=== PATIENT | female | born 1950 | race Caucasian/White ===

== ENCOUNTER 2021-06-10 08:59 | Emergency (ER) | payer MEDICARE ==
[~2021-06-10] VITALS: Ht 162.6 cm; Wt 63.0 kg
[2021-06-10 09:30] LABS: BASO % 0 % (0-3); EOS % 0 % (0-3); HEMOGLOBIN 12.6 g/dL (12.0-15.5); LYMPH # 1.2 x10^3/uL (1.0-4.8); LYMPH % 10 % (24-48); MEAN CORPUSCULAR HEMOGLOBIN 32 pg (25-35); MEAN CORPUSCULAR HGB CONC 34 g/dL (31-37); MEAN CORPUSCULAR VOLUME 93 fL (79-100); MONO # 0.8 x10^3/uL (0.0-1.1); MONO % 6 % (0-9); NEUT # 10.8 x10^3/uL (1.8-7.7); NEUT % 84 % (31-73); PLATELET COUNT 198 x10^3/uL (140-400); RED BLOOD COUNT 3.97 x10^6/uL (3.50-5.40); RED CELL DISTRIBUTION WIDTH 13.3 % (11.5-14.5); WHITE BLOOD COUNT 12.8 x10^3/uL (4.0-11.0)
[2021-06-10] MEDS ORDERED: MORPHINE SULFATE 2 MG/ML INJ. IV ONE (09:30)
--- NOTE | 2021-06-10 09:30 | PHYS DOC ---
Past Medical History Past Medical History: High Cholesterol Past Surgical History: Knee Replacement Smoking Status: Never Smoker Alcohol Use: None Drug Use: None General Adult EDM: Chief Complaint: CHEST PAIN HPI: HPI: 70-year-old female with recent history of knee replacement 1 month ago in the left leg presents the emergency department complaining of chest pain with difficulty breathing for the past several hours. She reports that her chest pain feels like she cannot get her breath out and worsens upon deep breathing. She has never had pain like this in the past. She has not noticed any leg swelling in the left leg, but has noticed some tingling in the left leg over the past 1 month that she attributed to nerve damage from her knee replacement. She has been wearing compression stockings. She has no history of blood clots in the past. She does not take any blood thinners. The patient denies nausea, vomiting, fever, chills, abdominal pain, urinary symptoms, cough, recent trauma, or any other complaints. Review of Systems: Review of Systems: ROS is otherwise reviewed as negative except for what was mentioned in HPI. Heart Score: C/O Chest Pain: Yes HEART Score for Chest Pain: HEART Score for Chest Pain Response (Comments) Value History Slighlty/Non-Suspicious 0 ECG Normal 0 Age > 65 2 Risk Factors 1 or 2 Risk Factors 1 Total 3 Current Medications: Current Medications Medications (Trade) Dose Ordered Sig/Buzz Start Time Stop Time Status Last Admin Dose Admin Morphine Sulfate (Morphine Sulfate) 4 mg 1X ONCE 06/10/21 09:30 06/10/21 09:31 UNV Allergies: Allergies: Allergies Coded Allergies Type Severity Reaction Last Updated Verified No Known Drug Allergies 06/10/21 No Physical Exam: PE: Constitutional: No acute distress, non-toxic appearance. HENT: Atraumatic, bilateral external ears normal, nose normal. Eyes: Conjunctiva normal, no discharge. Neck: Normal range of motion, supple, no stridor. Cardiovascular: Heart rate regular rhythm. 2+ radial pulses and equal Lungs & Thorax: No respiratory distress, symmetrical expansion. Bilateral breath sounds clear to auscultation Chest wall: No reproducible chest wall tenderness to palpation, no lesions. Abdomen: Soft, no tenderness Skin: Warm, dry. Extremities: Compression stockings in place, well-healed scar over the left knee from knee replacement surgery, no asymmetrical swelling Neurologic: Alert and oriented X 3, normal motor function, normal sensory functi on, no focal deficits noted. GCS 15. Psychologic: Affect normal, judgment normal, mood normal. Current Patient Data: Labs: Laboratory Tests Test 06/10/21 09:16 06/10/21 12:20 06/10/21 12:59 White Blood Count 12.8 x10^3/uL (4.0-11.0) Red Blood Count 3.97 x10^6/uL (3.50-5.40) Hemoglobin 12.6 g/dL (12.0-15.5) Hematocrit 37.0 % (36.0-47.0) Mean Corpuscular Volume 93 fL (79-100) Mean Corpuscular Hemoglobin 32 pg (25-35) Mean Corpuscular Hemoglobin Concent 34 g/dL (31-37) Red Cell Distribution Width 13.3 % (11.5-14.5) Platelet Count 198 x10^3/uL (140-400) Neutrophils (%) (Auto) 84 % (31-73) Lymphocytes (%) (Auto) 10 % (24-48) Monocytes (%) (Auto) 6 % (0-9) Eosinophils (%) (Auto) 0 % (0-3) Basophils (%) (Auto) 0 % (0-3) Neutrophils # (Auto) 10.8 x10^3/uL (1.8-7.7) Lymphocytes # (Auto) 1.2 x10^3/uL (1.0-4.8) Monocytes # (Auto) 0.8 x10^3/uL (0.0-1.1) Eosinophils # (Auto) 0.0 x10^3/uL (0.0-0.7) Basophils # (Auto) 0.0 x10^3/uL (0.0-0.2) Prothrombin Time 13.0 SEC (11.7-14.0) Prothromb Time International Ratio 1.0 (0.8-1.1) Activated Partial Thromboplast Time 26 SEC (24-38) Sodium Level 139 mmol/L (136-145) Potassium Level 4.1 mmol/L (3.5-5.1) Chloride Level 100 mmol/L (98-107) Carbon Dioxide Level 29 mmol/L (21-32) Anion Gap 10 (6-14) Blood Urea Nitrogen 11 mg/dL (7-20) Creatinine 0.8 mg/dL (0.6-1.0) Estimated GFR (Cockcroft-Gault) 70.5 Glucose Level 184 mg/dL (70-99) Calcium Level 9.7 mg/dL (8.5-10.1) Troponin I Quantitative < 0.017 ng/mL (0.000-0.055) < 0.017 ng/mL (0.000-0.055) AB-Aub-F-Type Natriuretic Peptide 296 pg/mL (0-124) Urine Collection Type Unknown Urine Color Yellow Urine Clarity Clear Urine pH 7.5 (<5.0-8.0) Urine Specific [place] >=1.030 (1.000-1.030) Urine Protein Negative mg/dL (NEG-TRACE) Urine Glucose (UA) Negative mg/dL (NEG) Urine Ketones (Stick) Negative mg/dL (NEG) Urine Blood Negative (NEG) Urine Nitrite Negative (NEG) Urine Bilirubin Negative (NEG) Urine Urobilinogen Dipstick 1.0 mg/dL (0.2 mg/dL) Urine Leukocyte Esterase Negative (NEG) Urine RBC 3-5 /HPF (0-2) Urine WBC 0 /HPF (0-4) Urine Squamous Epithelial Cells Few /LPF Urine Amorphous Sediment Present /HPF Urine Bacteria 0 /HPF (0-FEW) Vital Signs: Vital Signs Date Time Temp Pulse Resp B/P (MAP) Pulse Ox O2 Delivery O2 Flow Rate FiO2 06/10/21 09:00 98.7 106 16 142/72 (95) 99 Room Air 98.7 EKG: EKG: Time read: 0907 Sinus tachycardia rate of 106, no ST-T wave changes, no ectopic beats, normal axis, normal CT, QRS, and QTc intervals. Impression: Normal EKG. interpreted by me, Dante Bain D.O. Radiology/Procedures: Radiology/Procedures: Wells' Criteria for Pulmonary Embolism from [email or web address] on 06/10/2021 RESULT SUMMARY: 6.0 points Moderate risk group: 16.2% chance of PE in an ED population. Another study assigned scores > 4 as PE Likely and had a 28% incidence of PE. INPUTS: Clinical signs and symptoms of DVT > 0 = No PE is #1 diagnosis OR equally likely > 3 = Yes Heart rate > 100 > 1.5 = Yes Immobilization at least 3 days OR surgery in the previous 4 weeks > 1.5 = Yes Previous, objectively diagnosed PE or DVT > 0 = No Hemoptysis > 0 = No Malignancy w/ treatment within 6 months or palliative > 0 = No Course & Med Decision Making: Course & Med Decision Making Second set troponin is negative, radiology suggestive of early pneumonia, patient states that she has had pneumonia in the past, states it feels similar today. She felt much better after interventions. She complained of some lower abdominal pain that she believes is likely constipation as she is on pain medicine at home for chronic amount of time and is currently weaning off of it. She appears well and improved upon discharge examination. My Orders - DANTE BAIN DO Procedure Category Date Status Time Vital Signs Monitoring ER 06/10/21 Transmitted 09:16 Blood Pressure ER 06/10/21 Transmitted Monitoring 09:16 Cardiac Monitoring ER 06/10/21 Transmitted 09:16 Basic Metabolic Panel LAB 06/10/21 Complete 09:16 Cbc W Autodiff LAB 06/10/21 Complete 09:16 Protime With Inr LAB 06/10/21 Complete 09:16 Ua, Cult If Indicated LAB 06/10/21 Complete 09:16 Portable Chest 1v RAD 06/10/21 Resulted 09:16 Morphine Sulfate PHA 06/10/21 Complete (Morphine Sulfate) 09:[address] 06/10/21 Resulted 09:16 Nt-Pro Bnp LAB 06/10/21 Complete 09:16 Troponini LAB 06/10/21 Complete 09:16 Troponini LAB 06/10/21 Complete 12:16 Troponini LAB 06/10/21 Logged 15:16 Partial LAB 06/10/21 Complete Thromboplastin Time 09:16 Iohexol 350 Mg/Ml PHA 06/10/21 Complete (Omnipaque 350 Mg/Ml) 10:15 Ceftriaxone Iv Push PHA 06/10/21 Complete (Rocephin) 11:45 Departure Departure Impression: Primary Impression: Walking pneumonia Disposition: HOME / SELF CARE / HOMELESS Condition: STABLE Patient Instructions: Pneumonia, Adult, [id number] Additional Instructions: You were seen in the emergency department for a pneumonia. You should return to the ED if you develop worsening cough, shortness of breath, chest pain, or any other new or concerning symptoms. Your cough may persist for a few weeks but your other symptoms should gradually improve. You should make sure to drink plenty of fluids at home. You have been given a prescription for doxycycline. This medicine is an antibiotic for pneumonia. Please take as prescribed for the full course of the prescription. Do not stop taking the medicine early if you feel better, as this could risk building antibiotic resistance and may put you at risk for a more harmful infection later. The most common side effect of antibiotics include nausea, vomiting, diarrhea and rash. Please come to be evaluated if you develop any symptoms that are concerning to you. One major adverse effect of antibiotics is the development of a diarrheal illness called c. diff colitis, if you develop an excessive amount of diarrhea or are concerned about this please return to the ER or consult a physician. Scripts Doxycycline Hyclate (DOXYCYCLINE HYCLATE) 100 Mg Capsule 1 CAP PO BID, #14 CAP Prov: DANTE BAIN DO 06/10/21 DANTE BAIN DO Jun 10, 2021 09:30
--- NOTE | 2021-06-10 09:52 | RAD ---
Site ID: [id number] EXAMINATION: XR CHEST 1V. HISTORY: 70 years Female Reason: chest pain / Spl. Instructions: / History: . . COMPARISON: None. Findings: The lungs are hyperinflated with the background interstitial thickening likely related to s carring. No focal infiltrate. There is no previous study available for comparison.. The heart size is normal. There is no effusion or pneumothorax. The mediastinum and jarad appear unremarkable. Impression: COPD. Chronic appearing interstitial thickening with no definite focal consolidation. Electronically signed by: Bacilio Eduardo MD (06/10/2021 9:50 AM) [id number]
[2021-06-10 09:54] LABS: CALCIUM 9.7 mg/dL (8.5-10.1); CREATININE 0.8 mg/dL (0.6-1.0); GFR 70.5; POTASSIUM 4.1 mmol/L (3.5-5.1)
[2021-06-10] MEDS ORDERED: IOHEXOL 350 MG/ML 100 ML VIAL. IV ONE (10:15)
--- NOTE | 2021-06-10 10:59 | RAD ---
EXAM: CT chest with contrast - pulmonary embolus protocol CLINICAL HISTORY: Reason: chest pain, recent leg surgery, tachycardia, rule out pe / Spl. Instruction s: OMNI 350 INJ. 85 MLS / History: . COMPARISON: None. TECHNIQUE: CT of the chest following the administration of intravenous contrast during the pulmonary arterial phase. Axial, coronal and sagittal reformatted images were generated including MIP images. ---PQRS compliance statement - One or more of the following individualized dose reduction techniques were utilized for this study: 1. Automated exposure control 2. Adjustment of the mA and/or kV according to patient size 3. Use of iterative reconstruction technique--- FINDINGS: CHEST: Diagnostic quality: Adequate. Pulmonary emboli: None seen Right heart strain: None Pulmonary arteries: Normal in caliber. Groundglass opacities lower lobes. Calcified granuloma right lower lobe. No mediastinal or hilar lymp hadenopathy. No axillary lymphadenopathy. Debris is seen within the distal airways of the middle lobe . No pleural effusion. No pneumothorax. Visualized Upper abdomen: Small hiatal hernia. Bones: Multilevel degenerative changes of the spine are seen. IMPRESSION: 1. No evidence for acute pulmonary embolus. 2. Groundglass opacities lower lobes may represent infectious inflammatory process. Atelectasis coul d also have this appearance. 3. Small hiatal hernia. Electronically signed by: Michael Martines MD (06/10/2021 10:56 AM) ALFRED
[2021-06-10] MEDS ORDERED: cefTRIAXone IV Push 1 GM VIAL. IVP ONE (11:45)
[2021-06-10] MEDS ORDERED: DOXY100C3 PO (12:20)
[2021-06-10 12:55] VITALS: BP 138/62
[2021-06-10 13:13] LABS: BILIRUBIN,URINE NEGATIVE (NEG); CLARITY,URINE CLEAR; COLOR,URINE YELLOW; NITRITE,URINE NEGATIVE (NEG); PH,URINE 7.5 (<5.0-8.0); PROTEIN,URINE NEGATIVE (NEG-TRACE)
[2021-06-10 13:44] LABS: BACTERIA,URINE 0 /HPF (0-FEW); WBC,URINE 0 /HPF (0-4)
[2021-06-10 13:45] LABS: AMORPHOUS SEDIMENT,UR PRESENT /HPF
--- NOTE | 2021-06-13 15:34 | EKG ---
[facility] [address] [place] [address] Test Date: 2021-06-10 Test Time: 09:03:56 Pat Name: BRITTANIE WHATLEY Department: Room: Gender: F Statistics Teacher: : 1950 Requested By: ALDEN GERMAN Order Number: [id number] Reading MD: Measurements Intervals [place] Rate: 106 P: -2 IL: 148 QRS: -51 QRSD: 78 T: 56 QT: 334 QTc: 445 Interpretive Statements SINUS TACHYCARDIA LEFT ATRIAL ABNORMALITY ABNORMAL LEFT AXIS DEVIATION LEFT ANTERIOR FASCICULAR BLOCK CONSIDER LEFT VENTRICULAR HYPERTROPHY QRS(T) CONTOUR ABNORMALITY CONSISTENT WITH ANTEROSEPTAL INFARCT AGE UNDETERMINED ABNORMAL ECG RI6.01 No previous ECG available for comparison
--- NOTE | 2021-06-16 11:48 | EKG ---
[facility] [address] [place] [address] Test Date: 2021-06-10 Test Time: 09:03:56 Pat Name: BRITTANIE WHATLEY Department: Room: Gender: F Garden Machinery Mechanic: : 1950 Requested By: ALDEN GERMAN Order Number: [id number] Reading MD: Jeff Mike MD Measurements Intervals [place] Rate: 106 P: -2 MT: 148 QRS: -51 QRSD: 78 T: 56 QT: 334 QTc: 445 Interpretive Statements SINUS TACHYCARDIA CONSIDER SEPTAL INFARCT Electronically Signed On 06-20-2021 12:15:59 CDT by Jeff Mike MD
== END 2021-06-10 14:42 | disposition home or self-care (01) ==
LOC: ER 08:59
DX: J18.9 Pneumonia, unspecified organism (principal); E78.00 Pure hypercholesterolemia, unspecified; Z96.652 Presence of left artificial knee joint
CPT/HCPCS: 36415; 71045; 71275; 80048; 81001; 83880; 84484; 85025; 85610; 85730; 93005; 96374; 96375; 99285; J0696; J2270; Q9967